=== PATIENT | female | born 1965 | race Caucasian/White ===

== ENCOUNTER 2018-03-18 12:09 | Inpatient (IN) | payer OTHER ==
[2018-03-18] VITALS (20 sets, daily range): BP systolic 120–188; BP diastolic 66–99; BMI 27.4
[~2018-03-18] VITALS: Ht 165.1 cm; Wt 75.0 kg
--- NOTE | ~2018-03-18 | HEMODYNAMI ---
PATIENT:KATHYA KANG MEDICAL RECORD: [id number] : 67 LOCATION:[id number] ADMISSION DATE: 03/18/18 Generatedon:03/18/201815:41 Patient name: KATHYA KANG Patient #: [id number] SSN: : 1965 Date of study: 03/18/2018 Page: Of Hemodynamic Procedure Report Patient Data Patient Demographics Procedure consent was obtained First Name: KATHYA Gender: Female Last Name: JORGE LUIS : 1965 Patient #: [id number] Age: 53 year(s) Race: Unknown Additional ID: [id number] Contact details Address: [facility] [address] State: [place] City: [place] Zip code: [address] Admission Admission Data Admission Date: 03/18/2018 Admission Time: 12:09 Room #: D.CV03 Lab Results Lab Result Date: 03/18/2018 Lab Result Time: 0:00 Biochemistry Name Units Result Min Max BUN mg/dl 13 --(--*-)-- 7 18 Creatinine mg/dl 0.7 --(*---)-- 0.6 1.3 Procedure Procedure Types Cath Procedure Diagnostic Procedure [facility] w/Coronaries Temporary Pacemaker Procedure Description Procedure Date Procedure Date: 03/18/2018 Procedure Start Time: 13:33 Procedure End Time: 13:54 Procedure Staff Name Function Lamont Diaz RT Monitor Khalif Camargo RT Scrub Asa Moreno MD Performing Physician Ken Murray RN Nurse Procedure Data Cath Procedure Fluoroscopy Diagnostic fluoroscopy Total fluoroscopy Time: 2.2 time: 2.2 min min Diagnostic fluoroscopy Total fluoroscopy dose: dose: 110.61 mGy 110.61 mGy Contrast Material Contrast Material Type Amount (ml) Isovue 300 58 Entry Location Entry Primary Successful Side Size Upsize Upsize Entry Closure Succes sful Closure Location (Fr) 1 (Fr) 2 (Fr) Remarks Device Remarks Femoral Right 5 Fr Exoseal artery Femoral Right 6 Fr vein Short Estimated blood loss: 10 ml Diagnostic catheters Device Type Used For End Catheter Placement MULTIPACK JL 4.0 5Fr Procedure catheter MULTIPACK 3DRC 5Fr Procedure catheter MULTIPACK Pigtail 5 Fr Procedure catheter Procedure Medications Medication Administration Route Dosage 0.9% NaCl I.V. 100 ml/hr Oxygen etCO2 Nasal cannula 4 l/min Heparin Flush Bag added to field 2 bags (1000units/500ml NS) Lidocaine 2% added to field 20 Versed I.V. 1 mg Fentanyl I.V. 50 mcg Versed I.V. 1 mg Fentanyl I.V. 50 mcg Hemodynamics Rest Heart Rate: 37 (bpm) Pressure Samples Time Site Value (mmHg) Purpose Heart Use Rate(bpm) 13:44 LV 167/32,36 Snapshot 118 Snapshots Pre Cath Intra NCS Post Cath Vital Signs Time Heart Resp SPO2 etCO2 NIBP (mmHg) Rhythm Pain Sedation Rate (ipm) (%) (mmHg) Status Level (bpm) 13:21:43 37 19 99 24 156/72(110) 2 0 (11) 10(A) degree , No AV pain Block Type II 13:26:15 37 16 100 17.2 159/71(99) 2 0 (11) 10(A) degree , No AV pain Block Type II 13:30:44 39 16 100 30 133/61(86) 2 0 (11) 10(A) degree , No AV pain Block Type II 13:35:12 38 17 100 17.2 117/55(84) 2 0 (11) 10(A) degree , No AV pain Block Type II 13:39:24 80 14 100 36.7 135/78(101) 2 0 (11) 9(A) degree , No AV pain Block Type II 13:43:42 82 15 100 31.5 134/86(113) Paced 0 (11) 9(A) , No pain 13:48:00 80 14 99 33 140/85(108) Paced 0 (11) 9(A) , No pain 13:52:16 77 14 99 30.7 139/93(123) Paced 0 (11) 9(A) , No pain Medications Time Medication Route Dose Verified Delivered Reason Notes Eff ectiveness by by 13:26:57 0.9% NaCl I.V. 100 Ken Ken Per ml/hr Terri Murray physician RN RN 13:27:11 Oxygen etCO2 4 Ken Ken Per Nasal l/min Lorigan Lorigan physician cannula RN RN 13:27:22 Heparin Flush added 2 Ken Ken used for Bag to bags Lorigan Lorigan procedure (1000units/500ml field RN RN NS) 13:27:33 Lidocaine 2% added 20ml Ken Ken for local to vial Lorigan Lorigan anesthetic field RN RN 13:27:45 Versed I.V. 1 mg Ken Ken for Lorigan Lorigan sedation RN RN 13:27:55 Fentanyl I.V. 50 Ken Ken for mcg Lorigan Lorigan sedation RN RN 13:32:54 Versed I.V. 1 mg Ken Ken for Lorigan Lorigan sedation RN RN 13:33:00 Fentanyl I.V. 50 Ken Ken for mcg Lorigan Lorigan sedation RN project coach Log Time Note 12:50:13 Lamont Diaz RT(R) (CV) sent for patient. Start room use. 13:13:23 Time tracking: Regular hours (M-F 7:00 - 5:00) 13:13:27 Plan of Care:Hemodynamics will remain stable., Cardiac rhythm will remain stable., Comfort level will be maintained., Respiratory function will remain adequate., Patient/ family verbilizes understanding of procedure., Procedure tolerated without complication., Recovers from procedure without complications.. 13:13:40 Patient arrives emergently. 13:13:44 Patient received from ED to CCL 3 Alert and oriented. Tansferred to table in Supine position. 13:13:45 Warm blankets applied, and argentina hugger turned on for patient comfort. 13:13:46 Correct patient and procedure confirmed by team. 13:13:47 ECG and BP/O2 sat monitors applied to patient. 13:13:47 Signed procedure consent form obtained from patient. 13:20:18 Vital chart was started 13:23:14 Baseline sample Acquired. 13:23:23 Rhythm: sinus bradycardia 13:23:25 Full Disclosure recording started 13:23:38 H&P Date Dictated: 03/18/2018 ER History on chart.. 13:23:43 Pre-op teaching completed and patient verbalized understanding. 13:23:43 Pre-procedure instructions explained to patient. 13:23:50 Family in waiting room. 13:23:55 Patient NPO since Lunch. 13:24:23 Is patient on blood thinner?No 13:24:26 Patient diabetic? No. 13:24:45 Patient not . Patient has had hysterectomy. 13:24:47 Patient not . Patient has had tubal. 13:24:50 ----Pre-sedation anethsthesia assessment.---- 13:24:55 Previous problem with sedation/anesthesia? No ? 13:24:57 Snore? Yes 13:24:59 Sleep apnea? No 13:25:02 Deviated septum? No 13:25:03 Opens mouth fully? Yes 13:25:05 Sticks out tongue? Yes 13:25:12 Airway obstruction? Yes COPD 13:25:17 Pre procedure: right dorsailis pedis pulse 2+ Normal; easily identifiable; not easily obliterated 13:25:22 Patient pain scale 0/10 ?. 13:25:33 IV patent on arrival in left antecubital with 0.9% NaCl at [facility]. 13:26:29 Lab Result : Creatinine 0.7 mg/dl 13:26:29 Lab Result : BUN 13 mg/dl 13:26:33 Lab results completed and on chart. 13:26:40 Right groin area was prepped with chlora-prep and draped in sterile fashion 13:26:42 Sharps counted by scrub and verified by R.N. 13:26:42 Alarms reviewed by R. N. 13:26:44 --------ALL STOP TIME OUT------ 13:26:44 Physician arrived 13:26:45 Final Timeout: patient, procedure, and site verified with staff and physician. All members of the team are in agreement. 13:26:48 Right groin site verified by team. 13:26:57 0.9% NaCl 100 ml/hr I.V. was administered by Ken Murray RN; Per physician; 13:26:58 Physical assessment completed. ASA score P 2 - A patient with mild systemic disease as per Asa Moreno MD. 13:27:03 Sedation plan: IV Moderate Sedation Medication:Versed, Fentanyl 13:27:11 Oxygen 4 l/min etCO2 Nasal cannula was administered by Ken Murray RN; Per physician; 13:27:22 Heparin Flush Bag (1000units/500ml NS) 2 bags added to field was administered by Ken Murray RN; used for procedure; 13:27:33 Lidocaine 2% 20ml vial added to field was administered by Ken Murray RN; for local anesthetic; 13:27:45 Versed 1 mg I.V. was administered by Ken Murray RN; for sedation; 13:27:55 Fentanyl 50 mcg I.V. was administered by Ken Murray RN; for sedation; 13:32:15 Use device set Femoral Dx 13:32:16 ACIST Syringe (19758) opened to sterile field. 13:32:17 Bag Decanter (2002S) opened to sterile field. 13:32:18 Medline Cath Pack ([id number]) opened to sterile field. 13:32:19 DIAGNOSTIC WIRE .035 260cm J wire (913303) opened to sterile field. 13:32:20 ACIST Hand Control (64241) opened to sterile field. 13:32:21 ACIST Manifold (72725) opened to sterile field. 13:32:22 DIAGNOSTIC Multipack 5Fr catheter set ([id number]) opened to sterile field. 13:32:23 Tegaderm 4 x 4 (1626W) opened to sterile field. 13:32:24 SHEATH Prelude 5Fr 0.035 (XLZ-7U-64-035) opened to sterile field. 13:32:43 Zero performed for pressure channel P1 13:32:54 Versed 1 mg I.V. was administered by Ken Murray RN; for sedation; 13:33:00 Fentanyl 50 mcg I.V. was administered by Ken Murray RN; for sedation; 13:33:13 SHEATH Prelude 6Fr 0.035 (KIF-0R-96-035) opened to sterile field. 13:33:33 5Fr J Tip Temporary Pacing Catheter (H13385T0) opened to sterile field. 13:33:41 Procedure started. 13:33:47 Local anesthetic to right femoral artery with Lidocaine 2% by Asa Moreno MD.INITIAL ACCESS ONLY 13:33:59 A 5 Fr sheath was inserted into the Right Femoral artery 13:35:40 A 6 Fr Short sheath was inserted into the Right Femoral vein 13:36:10 Temporary pacer inserted 13:38:09 Temporary pacer turned on with the following settings: Rate 80, MA 3, Mode: Demand. 13:39:12 A MULTIPACK JL 4.0 5Fr catheter was advanced over the wire and used for Procedure. 13:40:07 LCA angiography performed. 13:41:16 Catheter removed. 13:42:08 A MULTIPACK 3DRC 5Fr catheter was advanced over the wire and used for Procedure. 13:42:24 RCA angiography performed. 13:42:39 Catheter removed. 13:43:52 A MULTIPACK Pigtail 5 Fr catheter was advanced over the wire and used for Procedure. 13:44:11 LV hemodynamics recorded. 13:44:16 LV gram done using GARNER 13:44:41 EF : 50 % 13:45:50 Catheter removed. 13:45:57 EXOSEAL 5Fr (EX500) opened to sterile field. 13:47:01 2-0 Silk 685H opened to sterile field. 13:47:38 Sheath removed intact; hemostasis achieved with Exoseal to the Right Femoral artery. 13:48:21 Procedure ended.(Physican Out) 13:48:54 FEMORAL VEIN SHEATH SEWN IN WITH 2.0 SILK 13:49:40 Fluoroscopy time 02.20 minutes. 13:49:49 Fluoroscopy dose: 110.61 mGy 13:49:49 Flurop Dose total: 110.61 13:50:34 Contrast amount:Isovue 300 58ml. 13:50:35 Sharps counted by scrub and verified by R.N. 13:51:09 Post-op/insertion site Right Femoral artery dressed using a 4 x 4 and Tegaderm. 13:51:36 Insertion/operative site no bleeding no hematoma. 13:51:49 Post right femoral artery:stable 13:51:52 Post Procedure Pulses reassessed and unchanged 13:53:13 Post-procedure physical assessment completed. ASA score P 2 - A patient with mild systemic disease as per Asa Moreno MD. 13:53:18 Post procedure rhythm: paced 13:53:22 Estimated blood loss: 10 ml 13:53:24 Post procedure instruction explained to patient.Patient verbalizes understanding. 13:53:25 Patient needs reinforcement of post procedure teaching. 13:53:26 Procedure and supply charges have been captured, reviewed, submitted and are correct. 13:53:51 Vital chart was stopped 13:53:52 See physician's report for complete and final results. 13:53:59 Report given to CVICU. 13:54:07 Patient transfered to CVICU with Bed. 13:54:09 Full Disclosure recording stopped 13:54:09 Procedure ended. 13:54:12 End room use (Document Last) 15:27:53 patient was brought back to reposition the temporary pacemaker catheter 15:40:53 DR. OSEGUERA REPOSITIONED. SET AT RATE OF 80 AND MA OF 3 Device Usage Item Name Manufacture Quantity Catalog Number Hospital Part Current Minimal Lot# / Charge Number Stock Stock Serial# Code ACIST Syringe Acist 1 09682 201734 086831 [id number] 20 (58850) [employer] Bag Decanter Microtek 1 [id number] 99611 273582 5 () Medical Inc. Medline Cath Cardinal 1 [id number] 397760 38103 228629 5 Pack Health ([id number]) DIAGNOSTIC WIRE St Faustino 1 345017 631986 663435 261373 30 .035 260cm J wire (510427) ACIST Hand Acist 1 80595 353015 093169 866631 5 Control (96381) [employer] ACIST Manifold Acist 1 49851 936815 292864 916870 5 (41024) [employer] DIAGNOSTIC Cardinal 1 [id number] 654846 85848 265365 30 Multipack 5Fr Health catheter set (CD8071) Tegaderm 4 x 4 3M 1 1626W 088939 348533 312526 5 (1626W) SHEATH Prelude Merit 1 QNW-4P-59-035 936000 863905 215224 5 5Fr 0.035 Medical (DNA-5G-39-035) SHEATH Prelude Merit 1 TEA-4Y-46-35 536740 3480128 357528 5 6Fr 0.035 Medical (CLD-1O-47-035) 5Fr J Tip Agudelo 1 [id number] 843641 02419 079783 2 Temporary Lifesciences Pacing Catheter ([id number]) MULTIPACK JL Cardinal 1 545326 5 4.0 5Fr Health catheter MULTIPACK 3DRC Cardinal 1 366266 5 5Fr catheter Health MULTIPACK Cardinal 1 830328 5 Pigtail 5 Fr Health catheter EXOSEAL 5Fr Cardinal 1 EX500 833260 078231 840313 10 (EX500) Health 2-0 Silk 685H Ethicon 1 685H 426405 19611 333870 5 Signature Audit [place] Stage Time Signature Unsigned Intra-Procedure 03/18/2018 Lamont Diaz RT(R) 1:55:17 PM RT(R) (CV) (CV) 03/18/2018 3:26:44 PM Intra-Procedure 03/18/2018 Lamont Diaz 3:41:21 PM RT(R) (CV) Signatures Monitor : Lamont Diaz RT Signature : Date : Time : [facility] [address] [place] [address]
--- NOTE | ~2018-03-18 | OP ---
PATIENT NAME: KATHYA KANG MEDICAL RECORD: [id number] :67 LOCATION:D.M2 D.2139 ADMISSION DATE:03/18/18 SURGEON: CHINO MCARTHUR MD DATE OF OPERATION: 03/19/2018 PROCEDURE: Lead portion of permanent pacemaker placement. DESCRIPTION OF PROCEDURE: After left subclavian was cannulated via modified Seldinger technique via Dr. Torres, first, under fluoroscopic images, I placed the RV lead into the RV apex without difficulty. After adequate R waves and thresholds were obtained, again, under fluoroscopic guidance, the right atrial lead was placed in the right atrial appendage without difficulty. After adequate P waves and thresholds were obtained, the leads were attached to appropriate poles of the generator and the pocket was closed via Dr. Torres. IMPRESSION: Successful lead portion of permanent pacemaker placement. COMPLICATIONS: None. ESTIMATED BLOOD LOSS: Minimal. DISPOSITION: To the floor, stable. TRANSINT:[id number] Voice Confirmation ID: [id number] DOCUMENT ID: [id number] CHINO MCARTHUR MD at 1254 CC: [id number] DICTATION DATE: 03/19/18 1503 SENIOR PROGRAM MANAGER: 03/19/18 1754 DIS IN 03/20/18 [id number] [place] [address]
--- NOTE | ~2018-03-18 | HEMODYNAMI ---
PATIENT:KATHYA KANG MEDICAL RECORD: [id number] : 67 LOCATION:[place] [address] ADMISSION DATE: 03/18/18 Generatedon:03/19/201815:18 Patient name: KATHYA KANG Patient #: [id number] SSN: : 1965 Date of study: 03/19/2018 Page: Of Hemodynamic Procedure Report Patient Data Patient Demographics Procedure consent was obtained First Name: KATHYA Gender: Female Last Name: JORGE LUIS : 1965 Patient #: [id number] Age: 53 year(s) Race: Unknown Additional ID: [id number] Contact details [address]: [address] [place] [address] State: [place] City: [place] Zip code: [address] Past Medical History Allergies Allergen Reaction Date Comments Reported Other allergy 03/19/2018 Sulfa, Oxycodone Admission Admission Data Admission Date: 03/18/2018 Admission Time: 14:03 Room #: [facility] Height (in.): 64.96 BSA: 1.82 (m2) Height (cm.): 165 BMI: 27.55 (kg/m2) Weight (lbs.): 165.35 Weight (kg.): 75 Lab Results Lab Result Date: 03/18/2018 Lab Result Time: 0:00 Biochemistry Name Units Result Min Max BUN mg/dl 13 --(--*-)-- 7 18 Creatinine mg/dl 0.7 --(*---)-- 0.6 1.3 Procedure Procedure Types Cath Procedure Diagnostic Procedure PPM/ICD PPM Dual Implant Sedation Charges Moderate Sedation up to 30 minutes Procedure Description Procedure Date Procedure Date: 03/19/2018 Procedure Start Time: 14:36 Procedure End Time: 15:11 Procedure Staff Name Function Maikel Rodgers MD Performing Physician Kleber Torres MD Assisting physician Caroline Fernando RT Monitor Jhonatan Blanco RN Nurse Fernando Liang RT Scrub Lamont Diaz RT Scrub Procedure Data Cath Procedure Fluoroscopy Diagnostic fluoroscopy Total fluoroscopy Time: 2.7 time: 2.7 min min Diagnostic fluoroscopy Total fluoroscopy dose: 58 dose: 58 mGy mGy Estimated blood loss: 10 ml Procedure Complications No complications Procedure Medications Medication Administration Route Dosage Oxygen etCO2 Nasal cannula 2 l/min Lidocaine 1% with added to field 20 ml Epi Bupivacaine 0.5% added to field 10 ml Ancef (1Gm/50ml NS) I.V.P.B 1 g 0.9% NaCl I.V. 100 ml/hr Ancef Irrigation Topical 1 g (1gm/500ml NS) Versed I.V. 1 mg Fentanyl I.V. 50 mcg Versed I.V. 1 mg Fentanyl I.V. 50 mcg Versed I.V. 1 mg Fentanyl I.V. 50 mcg Versed I.V. 1 mg Fentanyl I.V. 50 mcg Hemodynamics Rest BSA: 1.82 (m2) O2 Consumption: Estimated: 182.85 (ml/min) O2 Consumption indexed : Estimated:100.47 (ml/min/m) Heart Rate: 79 (bpm) Snapshots Pre Cath Intra NCS Post Cath Vital Signs Time Heart Resp SPO2 etCO2 NIBP (mmHg) Rhythm Pain Sedation Rate (ipm) (%) (mmHg) Status Level (bpm) 14:10:46 79 17 94 29.2 124/89(113) Paced 0 (11) 10(A) , No pain 14:15:02 79 11 96 25.5 122/90(105) Paced 0 (11) 10(A) , No pain 14:19:14 79 20 94 27 132/96(108) Paced 0 (11) 10(A) , No pain 14:23:32 78 12 94 23.2 113/78(97) Paced 0 (11) 10(A) , No pain 14:27:44 79 11 94 22.5 103/88(100) Paced 0 (11) 10(A) , No pain 14:31:54 79 16 94 30 112/77(95) Paced 0 (11) 10(A) , No pain 14:36:05 79 12 96 34.5 115/84(112) Paced 0 (11) 10(A) , No pain 14:40:17 79 29 95 35.2 121/84(117) Paced 0 (11) 9(A) , No pain 14:44:36 42 25 95 37.5 122/71(101) Paced 0 (11) 9(A) , No pain 14:48:58 44 14 95 36 118/61(86) Paced 0 (11) 9(A) , No pain 14:53:18 41 15 95 36 92/60(85) Paced 0 (11) 9(A) , No pain 14:57:24 75 17 93 34.5 109/75(92) Paced 0 (11) 10(A) , No pain 15:01:38 81 14 93 34.5 112/72(98) Paced 0 (11) 10(A) , No pain 15:05:52 77 15 93 33 121/72(114) Paced 0 (11) 10(A) , No pain Medications Time Medication Route Dose Verified Delivered Reason Notes Effectiv eness by by 14:14:52 Oxygen etCO2 2 Maikel Buffie used for Nasal l/min Vishal Blanco tax commissioner cannula 14:15:18 Lidocaine added 20 ml Maikel Nondenominational for local 1% with Epi to St Juni Torres MD anesthetic field 14:15:30 Bupivacaine added 10 ml Maikel Nondenominational for local 0.5% to St Juni Torres MD anesthetic field 14:15:45 Ancef I.V.P.B 1 g Maikel Buffie used for (1Gm/50ml Vishal Blanco tax commissioner NS) 14:15:56 0.9% NaCl I.V. 100 Maikel Buffie Per ml/hr St Juni Blanco RN physician 14:20:10 Ancef Topical 1 g Maikel Nondenominational used for Irrigation St Juni Torres MD procedure (1gm/500ml NS) 14:29:29 Versed I.V. 1 mg Maikel Buffie for Vishal Blanco RN sedation 14:29:35 Fentanyl I.V. 50 Maikel Buffie for [facility] Vishal Blanco RN sedation 14:36:31 Versed I.V. 1 mg Maikel Buffie for Vishal Blanco RN sedation 14:36:35 Fentanyl I.V. 50 Maikel Buffie for mcg Vishal Blanco RN sedation 14:39:39 Versed I.V. 1 mg Maikel Buffie for Vishal Blanco RN sedation 14:39:43 Fentanyl I.V. 50 Maikel Buffie for mcg Vishal Blanco RN sedation 14:56:13 Versed I.V. 1 mg Maikel Buffie for Vishal Blanco RN sedation 14:56:17 Fentanyl I.V. 50 Maikel [facility] St Juni Blanco RN sedation Procedure Log Time Note 13:47:21 Patient Height : 64.96 inches 13:47:24 Patient Weight : 165.35 lbs 13:48:33 Diagnostic Cath status Elective 13:48:35 Jhonatan Blanco RN sent for patient. Start room use. 13:48:37 Time tracking: Regular hours (M-F 7:00 - 5:00) 13:48:42 Plan of Care:Hemodynamics will remain stable., Cardiac rhythm will remain stable., Comfort level will be maintained., Respiratory function will remain adequate., Patient/ family verbilizes understanding of procedure., Procedure tolerated without complication., Recovers from procedure without complications.. 14:09:15 Patient received from CVICU to CCL 3 Alert and oriented. Tansferred to table in Supine position. 14:09:16 Warm blankets applied, and argentina hugger turned on for patient comfort. 14:09:17 Correct patient and procedure confirmed by team. 14:09:19 Signed procedure consent form obtained from patient. 14:09:21 ECG and BP/O2 sat monitors applied to patient. 14:09:22 Vital chart was started 14:09:26 Baseline sample Acquired. 14:09:41 Rhythm: paced 14:09:43 Full Disclosure recording started 14:09:54 H&P Date Dictated: 03/19/2018 Within 30 days and on chart., H&P Addendum completed by physician on day of procedure. (MUST COMPLETE FOR ALL OUTPATIENTS). 14:09:58 Pre-procedure instructions explained to patient. 14:10:01 Family in waiting room. 14:10:04 Patient NPO since Midnight. 14:10:28 Patient allergic to Other allergySulfa, Oxycodone 14:10:31 Is the patient allergic to Iodine/contrast media? No. 14:10:33 Is patient on blood thinner?No 14:12:28 Patient diabetic? No. 14:12:38 Snore? Yes 14:12:40 Sleep apnea? No 14:12:46 Airway obstruction? Yes COPD 14:12:51 Dentures? Yes ? 14:12:56 Patient pain scale 0/10 ?. 14:13:10 IV patent on arrival in left forearm with 0.9% NaCl at [facility]. 14:13:15 Lab results completed and on chart. 14:13:31 Left chest area was prepped with chlora-prep and draped in sterile fashion 14::33 Alarms reviewed by R. N. 14::33 Sharps counted by scrub and verified by R.N. 14:13:35 Physician paged 14:14:52 Oxygen 2 l/min etCO2 Nasal cannula was administered by Jhonatan Blanco RN; used for procedure; 14:15:18 Lidocaine 1% with Epi 20 ml added to field was administered by Kleber Torres MD; for local anesthetic; 14:15:30 Bupivacaine 0.5% 10 ml added to field was administered by Kleber Torres MD; for local anesthetic; 14:15:45 Ancef (1Gm/50ml NS) 1 g I.V.P.B was administered by Jhonatan Blanco RN; used for procedure; 14:15:56 0.9% NaCl 100 ml/hr I.V. was administered by Jhonatan Blanco RN; Per physician; 14:20:10 Ancef Irrigation (1gm/500ml NS) 1 g Topical was administered by Kleber Torres MD; used for procedure; 14:28:01 Medtronic 4574-45 PPM Lead opened to sterile field. 14:28:02 Medtronic 4074-52 PPM Lead opened to sterile field. 14:29:15 --------ALL STOP TIME OUT------ 14:29:17 Final Timeout: patient, procedure, and site verified with staff and physician. All members of the team are in agreement. 14:29:28 Left chest site verified by team. 14:29:29 Versed 1 mg I.V. was administered by Jhonatan Blanco RN; for sedation; 14::33 Physical assessment completed. ASA score P 2 - A patient with mild systemic disease as per Maikel Rodgers MD. 14:29:35 Fentanyl 50 mcg I.V. was administered by Jhonatan Blanco RN; for sedation; 14:29:37 Sedation plan: IV Moderate Sedation Medication:Versed, Fentanyl 14:30:57 Medtronic Advisa MRI PPM Dual Generator [id number] opened to sterile field. 14:32:37 Procedure started. 14:35:18 Medtronic sales and marketing representative Juaquin present for procedure. 14:35:44 Pre sharps counted by scrub and verified by RN: Sutures: 14; Sponges: 20; Stick needles: 2; Skin needles: 2; Blade: 1; Cautery: 1 14:35:53 Grounding pad site Left thigh. 14:36:31 Versed 1 mg I.V. was administered by Jhonatan Blanco RN; for sedation; 14:36:35 Fentanyl 50 mcg I.V. was administered by Jhonatan Blanco RN; for sedation; 14:36:42 Lidocaine 2% was administered to left subclavicular area by Kleber Torres MD . 14:36:45 Incision made to left subclavicular area. 14:38:38 Left subclavian vein accessed with 7Fr Peel Away Sheath. 14:38:43 Ventricular lead inserted and advanced. 14:39:39 Versed 1 mg I.V. was administered by Jhonatan Blanco RN; for sedation; 14:39:43 Fentanyl 50 mcg I.V. was administered by Jhonatan Blanco RN; for sedation; 14:40:12 Left subclavian vein accessed with 7Fr Peel Away Sheath. 14:40:17 Atrial lead inserted and advanced. 14:42:06 Temporary pacer turn off 14:42:08 Temporary pacer removed 14:42:42 Ventricular lead positioned. 14:42:46 Atrial lead positioned. 14:43:00 Ventricular lead tested. 14:43:03 Atrial lead tested. 14:54:20 PPM Dual was attached to lead(s) and inserted into pocket. 14:54:25 PPM Dual was inserted subcutaneously to left chest. 14:54:45 Atrial lead attachment was completed with 2-0 silk. 14:54:50 Ventricular lead attachment was completed with 2-0 silk. 14:55:22 Generator was sutured in place with 2-0 silk. 14:56:13 Versed 1 mg I.V. was administered by Jhonatan Blanco RN; for sedation; 14:56:17 Fentanyl 50 mcg I.V. was administered by Jhonatan Blanco RN; for sedation; 14:56:22 Parameters-- Generator: Mode: DDDR. Lower Rate: 60bpm. Upper Rate: 130bpm. 14:57:32 Parameters--Ventricular P/R Wave: 14.6mV. Current: .2mA; Threshold: .3V; Impedence: 1269OHMS. 14:57:58 Parameters--Atrial P/R Wave: 2.3mV. Current: .3mA; Threshold: .5V; Impedence: 622OHMS. 14:58:04 Lt Chest incision was dressed with Mepilex dressing. 15:02:54 Procedure ended.(Physican Out) 15:03:07 Fluoroscopy time 02.70 minutes. 15:03:28 Fluoroscopy dose: 58 mGy 15:03:28 Flurop Dose total: 58 15:03:34 Sharps counted by scrub and verified by R.N. 15:03:41 Insertion/operative site no bleeding no hematoma. 15:03:55 Post-op/insertion site Left Subclavian vein dressed using a Mepilex dressing. 15:04:26 Post procedure rhythm: paced 15:04:31 Estimated blood loss: 10 ml 15:04:36 Post procedure instruction explained to patient.Patient verbalizes understanding. 15:05:29 Procedure type changed to Cath procedure, Diagnostic procedure, PPM/ICD, PPM Dual Implant, Sedation Charges, Moderate Sedation up to 30 minutes 15:05:34 Procedure and supply charges have been captured, reviewed, submitted and are correct. 15:06:48 Use device set ARABELLA PPM 15:06:55 2-0 Ticron Multipack ([id number]) opened to sterile field. 15:06:56 3-0 Vicryl Single Pack [id number] opened to sterile field. 15:06:57 5-0 Monocryl PS2 [id number] opened to sterile field. 15:06:58 Cautery Tip [facility] opened to sterile field. 15:07:02 Cautery Pushbutton Pencil opened to sterile field. 15:07:02 Mepilex Dressing ([id number]) opened to sterile field. 15:07:06 Immobilizer Large opened to sterile field. 15:07:20 Procedure and supply charges have been captured, reviewed, submitted and are correct. 15:07:23 Procedure and supply charges have been captured, reviewed, submitted and are correct. 15:07:57 Procedure Complication : No complications 15:09:14 REMOVING 6 FR SHEATH IN RFV. 15:10:56 See physician's report for complete and final results. 15:11:00 Report given to CVICU. 15:11:05 Patient transfered to CVICU with Bed. 15:11:07 Procedure ended. 15:11:07 Full Disclosure recording stopped 15:11:10 End room use (Document Last) Device Usage Item Name Manufacture Quantity Catalog Hospital Part Current Minimal Lot# / Number Charge Number Stock Stock Serial# Code Medtronic Medtronic 1 4574-45 [id number] 136191 5 4574-45 PPM [id number] Lead EX.07/28 Medtronic Medtronic 1 4074-52 329492 272551 5 4074-52 PPM [id number] Lead EX. Medtronic Medtronic 1 A2DR01 414857 662441 5 Advisa MRI [id number] PPM Dual EX. 9 A2DR01 2-0 Ticron Ethicon 4 [id number] 28446 608765 5 Multipack ([id number]) 3-0 Vicryl Ethicon 1 [id number] 343515 697553 833324 5 Single Pack [id number] 5-0 Monocryl Ethicon 1 Y495G 063299 063087 538709 5 PS2 Y495G Cautery Tip Microtek 1 [id number] 375739 342082 677673 5 [facility] [employer] Cautery Microtek 1 [id number] 222209 88096 737368 5 Push[employer] Pencil Mepilex Cardinal 1 015277 369691 559782 576555 5 Dressing Health (915752) Immobilizer Cardinal 1 [id number] 237552 131730 399392 5 Large Health Signature Audit [place] Stage Time Signature Unsigned Intra-Procedure 03/19/2018 Caroline Fernando 3:18:23 PM RT(R) Signatures Monitor : Caroline Fernando Signature : RT Date : Time : [facility] [address] [place] [address]
--- NOTE | ~2018-03-18 | OP ---
PATIENT NAME: KATHYA KANG MEDICAL RECORD: [id number] :67 LOCATION:D.M2 D.2139 ADMISSION DATE:03/18/18 SURGEON: KLEBER BELL MD DATE OF OPERATION: 03/19/2018 PREOPERATIVE DIAGNOSES: 1. Mobitz II AV block. 2. Bradycardia. POSTOPERATIVE DIAGNOSES: 1. Mobitz II AV block. 2. Bradycardia. PROCEDURES: 1. Left subclavian vein dual lead pacemaker placement. 2. Fluoroscopic interpretation. SURGEON: Kleber Bell MD CO-SURGEON: Maikel Serna MD REPORT OF OPERATION: The patient's left upper chest was prepped and draped in sterile fashion. A 25 mL of 1% lidocaine with epinephrine was infused into the surrounding tissues. A skin incision was made in the upper outer chest and a subcutaneous pouch was made over the pectoral fascia. The left subclavian vein was cannulated times 2 and wires were advanced with ease. Fluoro was used to note that the wires were in good position in the venous system. The dilator and trocar devices were placed over the wires and the wires and dilators were removed. The leads were advanced through the trocars, and at this point, Dr. Serna positioned the leads appropriately in atrium and ventricle. Once the leads were noted to be functioning appropriately, then the trocars were removed. The leads were affixed to the pacemaker and then placed in the subcutaneous pouch. The leads and the pacemaker were all sutured to the pectoral fascia using interrupted #0 Ti-Cron. The wound was then irrigated out with antibiotic solution and the subcutaneous tissues were reapproximated with interrupted 3-0 Vicryl. The skin incision was closed with running subcutaneous 5-0 Monocryl and dressed appropriately. COMPLICATIONS: None. CONDITION: Stable. ANESTHESIA: Local MAC. BLOOD LOSS: Minimal. TRANSINT:[id number] Voice Confirmation ID: [id number] DOCUMENT ID: [id number] OPERATIVE REPORT [id number] KATHYA KANG CHRISTIAN MD at 0918 CC: [id number] DICTATION DATE: 03/19/18 1504 COIL FINISHER: 03/19/18 1806 ADM IN [place] [id number] [place] [address]
[2018-03-18] MEDS ORDERED: TIROSINT100 MCG PO (12:13)
[2018-03-18] MEDS ORDERED: CELEXA10 MG PO (12:13)
[2018-03-18 12:44] LABS: BASOPHILS 0.5 % (0-2); EOSINOPHILS 1.2 % (0-7); HEMATOCRIT 42.4 % (36.0-48.0); HEMOGLOBIN 14.2 g/dL (12-16); IMMATURE GRANULOCYTES 0.1 % (0-5); LYMPHOCYTES 17.7 % (15-50); MCH 32.1 pg (26.0-34.0); MCHC 33.5 g/dL (31.0-37.0); MCV 95.7 fL (80.0-100.0); MEAN PLATELET VOLUME 9.9 fL (7.4-10.4); MONOCYTES 7.2 % (2-11); NEUTROPHILS 73.3 % (40-80); PLATELET COUNT 156 10x3/uL (130-400); RBC 4.43 10x6/uL (4.00-5.40); RDW 12.7 % (11.5-14.5); WBC 7.4 10x3/uL (4.8-10.8)
[2018-03-18 12:56] LABS: APTT 30.7 SECONDS (22.8-39.4); INR 1.16 (0.85-1.17); PROTIME 14.4 SECONDS (11.6-15.0)
[2018-03-18 12:58] LABS: D-DIMER-QUANTITATIVE 0.33 ug/mLFEU (0.20-0.54)
[2018-03-18 13:02] LABS: ALBUMIN 3.7 g/dL (3.4-5.0); ALKALINE PHOSPHATASE 90 U/L (46-116); ALT (SGPT) 48 U/L (10-68); CALC OSMOLALITY 285 mosm/kg (275-300); CALCIUM 8.6 mg/dL (8.5-10.1); CARBON DIOXIDE 27.8 mmol/L (21.0-32.0); CHLORIDE - SERUM 108 mmol/L (98-107); CREATININE - SERUM 0.7 mg/dL (0.6-1.3); GLUCOSE 103 mg/dL (74-106); POTASSIUM - SERUM 3.7 mmol/L (3.5-5.1); PROTEIN - SERUM 6.7 g/dL (6.4-8.2); SODIUM 144 mmol/L (136-145); UREA NITROGEN 10 mg/dL (7-18); eGFR NON AFRICAN AMERICAN > 90 mL/min (90-120)
[2018-03-18 13:18] LABS: CKMB 0.8 U/L (0.0-3.6); CREATINE KINASE 65 UL (21-215)
[2018-03-18 13:23] LABS: TROPONIN-I 0.115 ng/mL (0.000-0.060)
[2018-03-18] MEDS ORDERED: HYDROCHLOROTH12.5 M1 PO (15:08)
[2018-03-18] MEDS ORDERED: COZAAR50 MG PO (15:08)
[2018-03-18] MEDS ORDERED: XANAX0.5 MG PO (18:07)
[2018-03-19] VITALS (22 sets, daily range): BP systolic 118–157; BP diastolic 68–107; Ht 165.1 cm; Wt 75.0 kg
[2018-03-19 05:38] LABS: BASOPHILS 0.3 % (0-2); HEMATOCRIT 44.7 % (36.0-48.0); IMMATURE GRANULOCYTES 0.1 % (0-5); LYMPHOCYTES 24.1 % (15-50); MCH 32.4 pg (26.0-34.0); MCHC 33.6 g/dL (31.0-37.0); MCV 96.5 fL (80.0-100.0); MEAN PLATELET VOLUME 10.4 fL (7.4-10.4); MONOCYTES 7.6 % (2-11); NEUTROPHILS 65.9 % (40-80); PLATELET COUNT 169 10x3/uL (130-400); RBC 4.63 10x6/uL (4.00-5.40); WBC 8.7 10x3/uL (4.8-10.8)
[2018-03-19 06:09] LABS: ALBUMIN 3.6 g/dL (3.4-5.0); ALKALINE PHOSPHATASE 98 U/L (46-116); BILIRUBIN - TOTAL 0.67 mg/dL (0.2-1.3); CALC OSMOLALITY 282 mosm/kg (275-300); CALCIUM 8.8 mg/dL (8.5-10.1); CARBON DIOXIDE 28.5 mmol/L (21.0-32.0); CHLORIDE - SERUM 105 mmol/L (98-107); CREATININE - SERUM 0.7 mg/dL (0.6-1.3); GLUCOSE 99 mg/dL (74-106); POTASSIUM - SERUM 3.5 mmol/L (3.5-5.1); PROTEIN - SERUM 6.8 g/dL (6.4-8.2); SODIUM 143 mmol/L (136-145); UREA NITROGEN 8 mg/dL (7-18); eGFR NON AFRICAN AMERICAN > 90 mL/min (90-120)
[2018-03-19 06:12] LABS: ALT (SGPT) 66 U/L (10-68)
[2018-03-20 03:00] VITALS: BP 121/78
== END 2018-03-20 11:46 | disposition home or self-care (01) | DRG 244 ==
LOC: D.ER 12:09 → D.CVICU 12:09 → D.ER 14:02 → D.CVICU 14:03 → EDSTATUS 14:15 → D.M2 03-20 07:59
PROVIDERS: Family Medicine; Internal Medicine Cardiovascular Disease
PROC: B2151ZZ Fluoroscopy of Left Heart using Low Osmolar Contrast (ICD-10-PCS; 2018-03-18)
PROC: 4A023N7 Measurement of Cardiac Sampling and Pressure, Left Heart, Percutaneous Approach (ICD-10-PCS; 2018-03-18)
PROC: 5A1223Z Performance of Cardiac Pacing, Continuous (ICD-10-PCS; 2018-03-18)
PROC: B2111ZZ Fluoroscopy of Multiple Coronary Arteries using Low Osmolar Contrast (ICD-10-PCS; principal; 2018-03-18 14:15)
PROC: 0JH606Z Insertion of Pacemaker, Dual Chamber into Chest Subcutaneous Tissue and Fascia, Open Approach (ICD-10-PCS; 2018-03-19)
PROC: 02H63JZ Insertion of Pacemaker Lead into Right Atrium, Percutaneous Approach (ICD-10-PCS; 2018-03-19)
PROC: 02HK3JZ Insertion of Pacemaker Lead into Right Ventricle, Percutaneous Approach (ICD-10-PCS; 2018-03-19)
DX: I44.1 Atrioventricular block, second degree (principal); I47.2 Ventricular tachycardia; R00.1 Bradycardia, unspecified; E03.9 Hypothyroidism, unspecified; I10 Essential (primary) hypertension; R55 Syncope and collapse

== ENCOUNTER → 2019-06-10 12:11 | Outpatient (CLI) | payer OTHER ==
[2018-03-19 10:26] VITALS: BMI 27.4
[~2019-06-10 12:11] MED LIST: CELEXA10 MG PO; COZAAR50 MG PO; HYDROCHLOROTH12.5 M1 PO; TIROSINT100 MCG PO; XANAX0.5 MG PO
--- NOTE | 2019-06-16 13:38 | EC ---
PATIENT:KATHYA KANG DATE OF SERVICE: 06/10/19 SEX: F MEDICAL RECORD: [id number] DATE OF : 67 LOCATION:D[facility] AGE OF PATIENT: 54 ADMISSION DATE: 06/10/19 REFERRING PHYSICIAN: INTERPRETING PHYSICIAN: CHINO MCARTHUR MD ECHOCARDIOGRAM REPORT ECHO CHARGES 4 ECHO COMPLETE Date: 06/10/19 CLINICAL DIAGNOSIS: KYLE/AV BLOCK H/O PACEMAKER PLACEMENT ECHOCARDIOGRAPHIC MEASUREMENTS (adult normal given) AC root (d.<3.7cm) 3.1 cm LV Septum d (<1.2 cm> 1.3 cm Valve Excursion 1.9 cm LV Septum (systole) 2.0 cm Left Atria (s.<4.0cm> 4.1 cm LVPW d(<1.2cm) 1.3 cm RV (d.<2.3cm) 2.6 cm LVPW (sytole) 2.1 cm LV diastole(<5.6CM) 7.0 cm MV E-F(>70mm/sec) cm LV systole 4.8 cm LVOT Diameter 1.9 cm MV exc.(>10mm) cm Est.ejection fraction (50-75%) % DOPPLER: LVIT cm/sec A 84.0 cm/sec E 51.0 cm/sec LA cm/sec RVSP 32.3 mmHg LVOT 81.0 cm/sec AOP1/2T m/s Asc. Ao 158 cm/sec RVOT 42.0 cm/sec RA cm/sec PA 91.0 cm/sec AV Gradient Peak 10.0 mmHg AV Mean 5.9 mmHg AV Area 1.2 cm MV Gradient Peak 2.8 mmHg MV Mean 1.4 mmHg MV Area cm COMMENTS: OP - HC [employer] Member: 1 PAUL MAKAYLA Tie Mill Operator: 3 Dr. Serna TAPE# PACS Pericardial Effusion N DATE OF SERVICE: Adequate 2D, color flow, spectral Doppler, and M-mode. LVH is present. LV internal dimensions are normal. LV is mildly globally hypo with EF lower limits to mildly reduced at 35% to 40%. Aortic valve sclerosis without stenosis by Doppler interrogation. Left atrium upper limits of normal to mildly dilated at 4.1 cm. Mitral valve shows no prolapse. Trace MR. Right-sided chambers grossly normal. Trace TR. TRANSINT:[id number] Voice Confirmation ID: [id number] DOCUMENT ID: [id number] ECHOCARDIOGRAM REPORT [id number] KATHYA KANG,CHINO Lui MD at 1338 CC: [id number] DICTATION DATE: 06/14/19 1242 VESSEL SCRAPPER HELPER: 06/14/19 1305 DEP CLI 06/10/19 [place] [id number]
== END | disposition home or self-care (01) ==
LOC: D.HCCECHO 06-09 13:00
PROVIDERS: ATTEND Internal Medicine Interventional Cardiology
DX: Z95.0 Presence of cardiac pacemaker (principal)